=== PATIENT | female | born 1965 | race Caucasian/White ===

== ENCOUNTER → 2021-06-18 | Day surgery (SDC) | payer OTHER ==
[~2021-06-18] VITALS: Ht 160 cm; Wt 97.5 kg
[~2021-06-18] MED LIST: ALLOPURINOL100 MG PO; ALTOPREV20 MG PO; CERTAGEN1 EACH PO; CITALOPRAM HBR20 MG PO; FLEXERIL10 MG PO; LEVOXYL100 MCG PO; METFORMIN HCL500 MG PO; MOBIC15 MG PO; PERCOCET 5-3251 EACH PO; PRINIVIL20 MG PO; TOPROL XL 50 MG50 MG PO; TRAMADOL HCL50 MG PO; TRULICITY1.5 MG/0.5 SC
[2021-06-18 08:06] LABS: HCT 48.2 % (37.0-47.0); HGB 16.7 g/dl (12.5-16.0); MCH 32.2 pg (25.0-31.0); MCHC 34.6 g/dL (32.0-36.0); MCV 92.9 fL (78.0-100.0); MPV 10.9 fL (6.0-9.5); RBC 5.19 M/uL (4.20-5.40); RDW 12.4 % (11.5-14.0); WBC 11.6 K/uL (4.0-10.5)
[2021-06-18 08:58] LABS: ALBUMIN 3.9 g/dL (3.4-5.0); BILIRUBIN - TOTAL 0.6 mg/dL (0.2-1.0); BUN/CREAT RATIO (CALC) 13.9 RATIO; CREATININE 0.79 mg/dL (0.51-0.95); GLOBULIN (CALCULATION) 3.9 g/dL; POTASSIUM 5.4 mmol/L (3.5-5.1); TOTAL PROTEIN 7.8 g/dL (6.4-8.2)
== END | disposition home or self-care (01) ==
LOC: FAS 07:16
PROVIDERS: Surgery
DX: K64.1 Second degree hemorrhoids (principal); K64.4 Residual hemorrhoidal skin tags; E11.9 Type 2 diabetes mellitus without complications; I10 Essential (primary) hypertension; E03.9 Hypothyroidism, unspecified; E78.00 Pure hypercholesterolemia, unspecified; F32.9 Major depressive disorder, single episode, unspecified; E66.9 Obesity, unspecified; Z79.84 Long term (current) use of oral hypoglycemic drugs; Z79.899 Other long term (current) drug therapy; Z88.1 Allergy status to other antibiotic agents; Z86.010 Personal history of colon polyps; Z90.721 Acquired absence of ovaries, unilateral
CPT/HCPCS: 36415; 80053; 82962; J1610; J2704; J7120